=== PATIENT | male | born 1955 | race Hispanic/Latino ===

== ENCOUNTER 2017-12-03 23:15 | Inpatient (IN) | payer MEDICARE, OTHER ==
[~2017-12-03] VITALS: Ht 167.6 cm; Wt 84.5 kg
[2017-12-03 23:50] LABS: BASOPHILS % (AUTO) 0.4 % (0.0-5.0); EOSINOPHILS % (AUTO) 4.1 % (0.0-8.0); HEMATOCRIT 25.8 % (42-54); LYMPHOCYTES % (AUTO) 10.9 % (21.0-51.0); MEAN CORPUSCULAR HEMOGLOBIN 32.5 pg (27.0-33.0); MEAN CORPUSCULAR HGB CONC 34.5 g/dL (32.0-36.0); MEAN CORPUSCULAR VOLUME 94.3 fL (79-99); NEUTROPHILS % (AUTO) 70.6 % (40.0-77.0); PLATELET COUNT (AUTO) 88 K/uL (130-400); RED BLOOD CELL COUNT(AUTO) 2.73 MIL/uL (4.50-6.20); RED CELL DISTRIBUTION WIDTH 18.7 % (11.0-15.5); WHITE BLOOD COUNT (AUTO) 7.4 K/uL (4.8-10.8)
[2017-12-04 00:05] LABS: CARBON DIOXIDE 23 mmol/L (21-32); CHLORIDE 96 mmol/L (101-111); GLOMERULAR FILTR. RATE CALC 36 mL/min (>60); GLUCOSE,RANDOM 123 mg/dL (70-105); POTASSIUM 3.7 mmol/L (3.5-5.1); SODIUM SERUM 126 mmol/L (136-145); UREA NITROGEN, BLOOD 35 mg/dL (7-18)
[2017-12-04 00:19] LABS: ALANINE AMINOTRANSFERASE 52 U/L (12-78); ALBUMIN 3.2 g/dL (3.5-5.0); ASPARTATE AMINOTRANSFERASE 113 U/L (10-37); BILIRUBIN,TOTAL 3.8 mg/dL (0.2-1.0); CREATINE KINASE MB 0.5 ng/mL (0.5-3.6); CREATINE KINASE, TOTAL 38 U/L (21-232); MYOGLOBIN 69 ng/mL (10-92); TOTAL PROTEIN, SERUM 4.8 g/dL (6.0-8.3); TROPONIN I < 0.04 ng/mL (0.00-0.06)
[2017-12-04 00:22] LABS: ALCOHOL, BLOOD < 3 mg/dL (0-10); AMMONIA 46 umol/L (11-32)
[2017-12-04 00:29] LABS: APPEARANCE,URINE Clear (CLEAR); BILIRUBIN,URINE Small (NEGATIVE); COLOR,URINE Dark Yellow (YELLOW); GLUCOSE, URINE (UA) Negative (NEGATIVE); KETONES,URINE Negative (NEGATIVE); LEUKOCYTE ESTERASE ,URINE Small (NEGATIVE); NITRATE,URINE Negative (NEGATIVE); OCCULT BLOOD,URINE Negative (NEGATIVE); PROTEIN,URINE Negative (NEGATIVE); UROBILINOGEN,URINE 0.2 mg/dL (0.2-1.0)
[2017-12-04 00:34] LABS: BACTERIA,URINE Few /HPF (None Seen); RBC,URINE None Seen /HPF (0-1)
[2017-12-04 00:35] LABS: MUCUS,URINE Moderate LPF (None Seen); SQUAMOUS EPITHELIAL CELL,UR Many /HPF (0-2)
[2017-12-04 00:47] LABS: AMPHET/METH SCREEN,URINE NEGATIVE (NEGATIVE); BARBITURATE SCREEN, URINE NEGATIVE (NEGATIVE); BENZODIAZEPINES SCREEN,URINE NEGATIVE (NEGATIVE); CANNABINOID SCREEN,URINE NEGATIVE (NEGATIVE); COCAINE SCREEN,URINE NEGATIVE (NEGATIVE); OPIATE SCREEN,URINE NEGATIVE (NEGATIVE); PHENCYCLIDINE SCREEN,URINE NEGATIVE (NEGATIVE)
[2017-12-04 00:47] LABS: INR 1.66 (0.85-1.15); PARTIAL THROMBOPLASTIN TIME 48.8 SEC (26.3-35.5); PROTHROMBIN TIME 17.3 SEC (9.6-11.6)
[2017-12-04] MEDS ORDERED: ONDANSETRON HCL MDV 20ML 2 MG/ML VIAL IVP PRN (01:45)
[2017-12-04] MEDS ORDERED: MORPHINE SULFATE 2 MG/ML 1ML SYG IVP PRN (01:45)
[2017-12-04] MEDS: PANTOPRAZOLE 40 MG/VIAL IVP SCH (01:45)
[2017-12-04] MEDS ORDERED: MORPHINE SULFATE 4 MG/1ML SYG ONE (01:49)
[2017-12-04] MEDS ORDERED: ONDANSETRON HCL 4 MG/2 ML VIAL ONE (01:50)
[2017-12-04] MEDS: MIDODRINE HCL 5 MG TABLET PO SCH ×4 (02:42→20:29)
[2017-12-04] MEDS ORDERED: PANT40TA25 PO (04:10)
[2017-12-04] MEDS ORDERED: ERGO500014 PO ×2 (04:10→04:24)
[2017-12-04] MEDS ORDERED: ATOR10 PO (04:10)
[2017-12-04] MEDS ORDERED: FERR324T9 PO (04:10)
[2017-12-04] MEDS ORDERED: ESCI5TAB10 PO (04:10)
[2017-12-04] MEDS ORDERED: THIAM100TB PO (04:10)
[2017-12-04] MEDS ORDERED: MIDO5TAB PO (04:10)
[2017-12-04] MEDS ORDERED: PROM25TA7 PO (04:10)
[2017-12-04] MEDS ORDERED: MELA1TAB15 PO (04:10)
[2017-12-04] MEDS ORDERED: RIFA550T PO (04:10)
[2017-12-04] MEDS ORDERED: MAGN400T6 PO (04:10)
[2017-12-04] MEDS ORDERED: FOLI1TAB15 PO (04:10)
[2017-12-04] MEDS ORDERED: FINA5TAB41 PO (04:10)
[2017-12-04] MEDS ORDERED: FLUT16H NASAL (04:10)
[2017-12-04] MEDS ORDERED: LACT10SO PO (04:15)
[2017-12-04] MEDS ORDERED: NYST5ORA7 PO (04:15)
[2017-12-04] MEDS ORDERED: BUDE10.2 IH (04:19)
[2017-12-04] MEDS ORDERED: ALBU8.5H8 IH (04:19)
[2017-12-04 04:29] LABS: HEMATOCRIT 22.3 % (42-54); MEAN CORPUSCULAR HEMOGLOBIN 34.3 pg (27.0-33.0); MEAN CORPUSCULAR HGB CONC 36.7 g/dL (32.0-36.0); MEAN CORPUSCULAR VOLUME 93.5 fL (79-99); PLATELET COUNT (AUTO) 85 K/uL (130-400); RED BLOOD CELL COUNT(AUTO) 2.38 MIL/uL (4.50-6.20); RED CELL DISTRIBUTION WIDTH 18.6 % (11.0-15.5); WHITE BLOOD COUNT (AUTO) 6.7 K/uL (4.8-10.8)
[2017-12-04 04:44] VITALS: BP 93/52
[2017-12-04 04:47] LABS: INR 1.73 (0.85-1.15); PARTIAL THROMBOPLASTIN TIME 54.8 SEC (26.3-35.5)
[2017-12-04 05:01] LABS: ALBUMIN 2.9 g/dL (3.5-5.0); BILIRUBIN,TOTAL 3.6 mg/dL (0.2-1.0); CREATININE 1.9 mg/dL (0.5-1.5); POTASSIUM 3.6 mmol/L (3.5-5.1); TOTAL PROTEIN, SERUM 4.3 g/dL (6.0-8.3)
[2017-12-04 08:57] VITALS: BP 100/50
[2017-12-04 11:58] VITALS: BP 94/56
[2017-12-04 14:33] LABS: CREATININE,URINE RANDOM 143 mg/dL (30-135); SODIUM,URINE RANDOM < 15 mmol/l (40-220)
[2017-12-04 16:48] VITALS: BP 93/63
[2017-12-04 21:08] VITALS: BP 102/56
[2017-12-04 23:15] VITALS: BP 93/52
[2017-12-05] MEDS: PANTOPRAZOLE 40 MG/VIAL IVP SCH (00:02)
[2017-12-05] MEDS: MIDODRINE HCL 5 MG TABLET PO SCH ×2 (00:02→10:52)
[2017-12-05 03:58] VITALS: BP 97/52
[2017-12-05 06:22] LABS: HEMATOCRIT 23.8 % (42-54); MEAN CORPUSCULAR HEMOGLOBIN 33.2 pg (27.0-33.0); MEAN CORPUSCULAR HGB CONC 34.8 g/dL (32.0-36.0); MEAN CORPUSCULAR VOLUME 95.4 fL (79-99); PLATELET COUNT (AUTO) 77 K/uL (130-400); RED CELL DISTRIBUTION WIDTH 18.9 % (11.0-15.5); WHITE BLOOD COUNT (AUTO) 5.7 K/uL (4.8-10.8)
[2017-12-05 06:32] LABS: CREATININE 1.8 mg/dL (0.5-1.5)
[2017-12-05 06:34] LABS: % IRON SATURATION 120.5 % (30-44)
[2017-12-05 07:17] LABS: BAND NEUTROPHILS % (MANUAL) 1 % (0-2); BASOPHILS % (MANUAL) 2 % (0-2); EOSINOPHILS % (MANUAL) 3 % (1-6); LYMPHOCYTES % (MANUAL) 7 % (22-44); MONOCYTES % (MANUAL) 6 % (2-9); SEGMENTED NEUTROPHILS % 81 % (40-70)
[2017-12-05 07:18] LABS: PLATELET MORPHOLOGY COMMENT DECREASED
[2017-12-05 07:19] LABS: MAN.DIFF COMMENT-IMPRESSION MANUAL DIFFERENTIAL
[2017-12-05 08:05] VITALS: BP 102/54
[2017-12-05 11:18] VITALS: BP 96/53
== END 2017-12-05 16:30 | disposition home or self-care (01) | DRG 442 ==
LOC: EDH 23:15 → EDHIP 12-04 01:12 → 3AH 12-04 01:48
PROVIDERS: ADMIT Internal Medicine Nephrology; ATTEND Internal Medicine Nephrology
DX: K72.90 Hepatic failure, unspecified without coma (principal); N17.9 Acute kidney failure, unspecified; I95.89 Other hypotension; Z76.82 Awaiting organ transplant status; D69.6 Thrombocytopenia, unspecified; E87.70 Fluid overload, unspecified; E87.1 Hypo-osmolality and hyponatremia; R18.8 Other ascites; E86.9 Volume depletion, unspecified; D64.9 Anemia, unspecified; K74.60 Unspecified cirrhosis of liver; N18.9 Chronic kidney disease, unspecified
CPT/HCPCS: 36415; 71045; 80048; 80053; 80305; 81001; 82140; 82270; 82533; 82550; 82553; 82570; 83540; 83550; 83735; 83874; 84300; 84484; 85025; 85027; 85610; 85730; 93005; C9113; G0480; J2270; J2405